=== PATIENT | female | born 1970 | race Two or more races ===

== ENCOUNTER 2019-06-15 09:58 | Outpatient (CLI) | payer BC | END 2019-06-15 23:59 | disposition home or self-care (01) | LOC: RAD 09:58 | PROVIDERS: ATTEND Family Medicine | DX: J98.6 Disorders of diaphragm (principal) | CPT/HCPCS: 71046 ==

== ENCOUNTER 2019-06-23 08:37 | Outpatient (CLI) | payer BC | END 2019-06-23 23:59 | disposition home or self-care (01) | LOC: CARD 08:37 | PROVIDERS: ATTEND Family Medicine | DX: I34.0 Nonrheumatic mitral (valve) insufficiency (principal); R00.0 Tachycardia, unspecified | CPT/HCPCS: 93307-TC ==